=== PATIENT | female | born 1980 | race Caucasian/White ===

== ENCOUNTER 2023-06-29 12:32 | Emergency (ER) | payer MEDICAID ==
[2023-06-29] MEDS: Lidocaine/Epineph/Tetracaine 3 ML Syringe TOP ONE (13:36)
== END 2023-06-29 15:08 | disposition home or self-care (01) ==
LOC: MW.ED 12:32
DX: S01.01XA Laceration without foreign body of scalp, initial encounter (principal); Z75.8 Other problems related to medical facilities and other health care; Z91.040 Latex allergy status; Z88.5 Allergy status to narcotic agent; Z79.899 Other long term (current) drug therapy; W20.8XXA Other cause of strike by thrown, projected or falling object, initial encounter; Y93.89 Activity, other specified; Y99.0 Civilian activity done for income or pay
CPT/HCPCS: 12001; 99283; A9270

== ENCOUNTER 2024-04-14 15:44 | Emergency (ER) | payer MEDICAID ==
[2024-04-14] MEDS: Ketorolac 30 MG/ML SDV IM ONE (16:58)
[2024-04-14] MEDS: Lidocaine 4% 1 each Patch TOP STA (16:59)
[2024-04-14] MEDS: Orphenadrine 60 MG/2 ML Inj IM ONE (16:59)
[2024-04-14] MEDS: Acetaminophen 500 MG Tab PO ONE (16:59)
== END 2024-04-14 18:41 | disposition left against medical advice (07) ==
LOC: MW.ED 15:44
DX: Z04.3 Encounter for examination and observation following other accident (principal); F17.210 Nicotine dependence, cigarettes, uncomplicated; Z53.20 Procedure and treatment not carried out because of patient's decision for unspecified reasons; Z79.899 Other long term (current) drug therapy; Z91.040 Latex allergy status; Z88.5 Allergy status to narcotic agent; Z75.8 Other problems related to medical facilities and other health care
CPT/HCPCS: 70450; 72125; 72128; 72131; 73030; 73610; 96372; 99284; A9270; J1885; J2360; 99283

== ENCOUNTER 2024-05-18 18:43 | Emergency (ER) | payer MEDICAID | END 2024-05-18 19:41 | LOC: MW.ED 18:43 | DX: Z02.89 Encounter for other administrative examinations (principal); F17.210 Nicotine dependence, cigarettes, uncomplicated; Z91.040 Latex allergy status; Z88.5 Allergy status to narcotic agent; Z79.899 Other long term (current) drug therapy | CPT/HCPCS: 99283 ==